=== PATIENT | male | born 1980 | race Caucasian/White ===

== ENCOUNTER 2021-12-04 18:14 | Emergency (ER) | payer OTHER ==
[2021-12-04 18:35] VITALS: BP 121/80; PULSE 87; TEMP 98.7; BMI 25.7
[2021-12-04] MEDS ORDERED: DIPHTH,PERTUSS(ACELL),TET 0.5 ML DISP.SYRIN IM ONE ×2 (21:25→21:26)
== END 2021-12-04 21:54 | disposition home or self-care (01) ==
LOC: JERFT 18:14 → JER 18:14 → JERFT 21:54
PROC: 3E0234Z Introduction of Serum, Toxoid and Vaccine into Muscle, Percutaneous Approach (ICD-10-PCS; principal; 2021-12-04)
DX: S60.511A Abrasion of right hand, initial encounter (principal)
CPT/HCPCS: 90715; 99283-25

== ENCOUNTER 2023-08-01 14:15 | Emergency (ER) | payer OTHER ==
[2023-08-01 14:22] VITALS: BMI 23.9
[2023-08-01] MEDS ORDERED: SODIUM CHLORIDE 1,000 ML IV STA (15:29)
[2023-08-01] MEDS ORDERED: ACETAMINOPHEN 1000 MG/100 ML BAG IVPB ONE (15:29)
[2023-08-01] MEDS ORDERED: ACETAMINOPHEN INJECTION 100 ML IVPB ONE (15:34)
[2023-08-01 16:37] LABS: BASO % 0.3 % (0-2.0); EOS % 3.9 % (0-4.5); HEMATOCRIT 41.9 % (35.4-49); HEMOGLOBIN 14.6 GM/dL (11.7-16.9); LYMPH % 20.2 % (8-40); MCH 29.3 pg (25.7-33.7); MCHC 34.9 g/dl (32.0-35.9); MEAN CELL VOLUME 83.9 fl (80-96); MEAN PLT VOLUME 8.1 fl (7.5-11.1); MONO % 9.1 % (3.8-10.2); NEUT % 66.5 % (42.8-82.8); PLATELET COUNT 220 10^3/uL (134-434); RBC 4.99 M/mm3 (4.00-5.60); RDW 12.9 % (11.9-15.9); WHITE BLOOD COUNT 7.2 K/mm3 (4.0-10.0)
[2023-08-01 16:56] LABS: INR 1.12 (0.83-1.09); POTASSIUM 4.2 mmol/L (3.5-5.1)
[2023-08-01 16:58] LABS: ACTIVATED PTT 29.1 SECONDS (25.2-36.5); CALCIUM 8.5 mg/dL (8.5-10.1)
[2023-08-01 16:59] LABS: ALBUMIN 3.7 g/dl (3.4-5.0); BLOOD UREA NITROGEN 20.5 mg/dL (7-18)
[2023-08-01 17:02] LABS: CREATININE 0.9 mg/dL (0.55-1.3)
[2023-08-01 17:03] LABS: BILIRUBIN,TOTAL 0.4 mg/dL (0.2-1)
[2023-08-01 19:05] VITALS: BP 108/63; PULSE 69; RESP 20; TEMP 98.4
== END 2023-08-01 19:03 | disposition home or self-care (01) ==
LOC: JER 14:15
PROC: 3E033NZ Introduction of Analgesics, Hypnotics, Sedatives into Peripheral Vein, Percutaneous Approach (ICD-10-PCS; principal; 2023-08-01)
PROC: 3E0337Z Introduction of Electrolytic and Water Balance Substance into Peripheral Vein, Percutaneous Approach (ICD-10-PCS; 2023-08-01)
DX: K40.90 Unilateral inguinal hernia, without obstruction or gangrene, not specified as recurrent (principal); R10.9 Unspecified abdominal pain; K52.9 Noninfective gastroenteritis and colitis, unspecified; X50.0XXA Overexertion from strenuous movement or load, initial encounter
CPT/HCPCS: 36415; 72131-TC; 74177-TC; 80053; 83605; 85025; 85610; 85730; 86850; 86900; 86901; 99285-25; Q9967

== ENCOUNTER 2023-09-01 04:20 | Day surgery (SDC) | payer OTHER ==
[2023-09-01] MEDS ORDERED: LIDOCAINE HCL 1%, 10 MG/ML (20ML VIAL) ONE (10:48)
[2023-09-01] MEDS ORDERED: BUPIVACAINE HCL/PF 0.5% (5MG/ML) 10 ML VIAL ONE (10:49)
[2023-09-01] MEDS ORDERED: ONDANSETRON 4 MG/2 ML VIAL IVPUSH PRN (11:56)
[2023-09-01] MEDS ORDERED: oxyCODONE HCL 5 MG TABLET PO PRN (11:56)
[2023-09-01] MEDS ORDERED: LACTATED RINGERS SOLUTION 1,000 ML IV SCH (12:00)
[2023-09-01] MEDS ORDERED: ROCURONIUM BROMIDE 50 MG/5 ML SYRINGE ONE (12:04)
[2023-09-01] MEDS ORDERED: PROPOFOL 40 ML ONE (12:04)
[2023-09-01] MEDS ORDERED: MIDAZOLAM HCL 2 MG/2 ML SINGLE DOSE VIAL ONE (12:04)
[2023-09-01] MEDS ORDERED: ceFAZolin SODIUM 1 GM VIAL IVPB ONE (12:25)
[2023-09-01] MEDS ORDERED: LIDOCAINE HCL 1%, 10 MG/ML (20ML VIAL) INF ONE (12:50)
[2023-09-01] MEDS ORDERED: BUPIVACAINE HCL/PF 0.5% (5 MG/ML) 30 ML VIAL IJ ONE (12:51)
[2023-09-01] MEDS ORDERED: NEOSTIGMINE METHYLSULFATE 0.5 MG/1 ML - 10 ML MDV ONE (13:13)
[2023-09-01] MEDS ORDERED: KETOROLAC TROMETHAMINE 10 MG TABLET PO ONE (13:44)
[2023-09-01] MEDS ORDERED: ACETAMINOPHEN 500 MG TABLET (FP) PO PRN (13:44)
[2023-09-01] MEDS ORDERED: oxyCODONE HCL 10 MG SUSTAINED ACTING TABLET PO ONE (13:44)
[2023-09-01] MEDS ORDERED: ACETAMINOPHEN INJECTION 100 ML IVPB ONE (14:08)
[2023-09-01] MEDS ORDERED: ACETAMINOPHEN 1000 MG/100 ML BAG IVPB ONE (14:12)
[2023-09-01 14:35] VITALS: RESP 18
[2023-09-01 16:00] VITALS: BP 114/71; PULSE 77; TEMP 98.3
== END 2023-09-01 17:00 | disposition home or self-care (01) ==
LOC: JASU-SURG 04:20
PROVIDERS: ATTEND Surgery
PROC: 0DQV0ZZ Repair Mesentery, Open Approach (ICD-10-PCS; principal; 2023-09-01 12:30)
DX: K40.90 Unilateral inguinal hernia, without obstruction or gangrene, not specified as recurrent (principal)
CPT/HCPCS: 94760; C1781